=== PATIENT | female | born 1970 | race African-American/Black ===

== ENCOUNTER 2020-04-07 10:11 | Emergency (ER) | payer OTHER ==
[~2020-04-07] VITALS: Ht 172.7 cm; Wt 65.8 kg
[~2020-04-07 10:11] MED LIST: NAPROSYN500 MG PO; ULTRAM 50MG TAB50 MG PO; ZPAK PO; [UNRECOGNIZED DRUG - REMARK]
[2020-04-07 12:57] VITALS: BP 165/79
== END 2020-04-07 12:57 | disposition home or self-care (01) ==
LOC: ER 10:11
DX: J06.9 Acute upper respiratory infection, unspecified (principal); Z20.828 Contact with and (suspected) exposure to other viral communicable diseases; Z79.899 Other long term (current) drug therapy